=== PATIENT | male | born 1960 | race Caucasian/White ===

== ENCOUNTER 2020-05-13 06:27 | Emergency (ER) | payer OTHER, BC ==
[~2020-05-13] VITALS: Ht 177.8 cm; Wt 88.6 kg
[2020-05-13] MEDS ORDERED: LOSA50TA88 (06:34)
[2020-05-13] MEDS ORDERED: CART180C3 PO (06:34)
[2020-05-13] MEDS ORDERED: HYDR25TAB (06:34)
[2020-05-13] MEDS ORDERED: ASPI81TA86 PO (06:34)
[2020-05-13] MEDS ORDERED: ROSU5TAB5 PO (06:34)
[2020-05-13] MEDS ORDERED: BOOSTRIX/ADACEL VACCINE (DIPHTH/PERTUSS/ACELL/TETANUS) 0.5ML SYR IM ONE (06:45)
--- NOTE | 2020-05-13 07:39 | REP ---
Clinical: Trauma. Technique: AP and lateral views of the right tibia / fibula. Findings: Moderate tricompartmental osteoarthritic changes at the knee and ankle. Fracture involving the medial distal aspect of the tibia at the fibular notch with lateral ankle swelling cannot be excluded and requires correlation. Impression: Age-related arthritic changes at the knee and ankle. Lateral ankle swelling. Irregularity involving the distal medial aspect of the tibia at the fibular notch cannot be excluded and may represent underlying fracture. Correlation is required. Electronically Signed by Williams Griggs MD 05/13/2020 07:31 A
--- NOTE | 2020-05-13 07:41 | REP ---
Clinical: Trauma. Technique: AP, lateral, bilateral oblique views of the right ankle. Findings: AP view demonstrates moderate lateral swelling and subtle irregularity along the medial tip of the tibia in the region of the fibular notch cannot be excluded and may represent small fracture. Corticated bony densities along the medial malleolus suggest old injury. The tibiotalar joint appears grossly normal. No subcutaneous emphysema or foreign body. Impression: Lateral ankle swelling. Cannot exclude fracture involving the medial distal tibia in the region of the fibular notch. Correlation is required. Electronically Signed by Williams Griggs MD 05/13/2020 07:33 A
--- NOTE | 2020-05-13 09:56 | REP ---
Clinical: Trauma. Possible occult fracture. Technique: Axial noncontrast images through the ankle with coronal and sagittal re-formations. Findings: Moderate generalized soft tissue swelling and post traumatic subcutaneous infiltration is appreciated. The osseous structures demonstrate degenerative changes with subtle areas of cortical sclerosis and spurring which may have suggested acute fracture on radiographic evaluation. No obvious acute fracture or dislocation is identified. Small corticated loose bodies at the medial malleolus most compatible with old injury. Impression: 1. Soft tissue swelling and subcutaneous infiltration consistent with trauma. 2. No acute fracture or dislocation identified. 3. Arthritic changes as noted above which likely mimic/suggested the possibility of acute fracture on recent radiographic evaluation. Electronically Signed by Williams Griggs MD 05/13/2020 09:46 A
[2020-05-13 10:16] VITALS: BP 137/89
== END 2020-05-13 10:35 | disposition home or self-care (01) ==
LOC: M ED 06:27
DX: S80.811A Abrasion, right lower leg, initial encounter (principal); S93.401A Sprain of unspecified ligament of right ankle, initial encounter; X58.XXXA Exposure to other specified factors, initial encounter; Y92.89 Other specified places as the place of occurrence of the external cause; Y99.0 Civilian activity done for income or pay; I10 Essential (primary) hypertension; I48.91 Unspecified atrial fibrillation; Z79.899 Other long term (current) drug therapy; Z79.82 Long term (current) use of aspirin